=== PATIENT | male | born 1985 | race Caucasian/White ===

== ENCOUNTER 2020-12-28 22:26 | Emergency (ER) | payer MEDICAID ==
[~2020-12-28] VITALS: Ht 175.3 cm; Wt 78.8 kg
[2020-12-28 22:35] VITALS: BP 134/97
== END 2020-12-29 01:03 | disposition home or self-care (01) ==
LOC: ED 12-29 00:01
DX: F15.10 Other stimulant abuse, uncomplicated (principal); F41.1 Generalized anxiety disorder; Z72.9 Problem related to lifestyle, unspecified; F17.200 Nicotine dependence, unspecified, uncomplicated
CPT/HCPCS: 99281